=== PATIENT | male | born 2000 | race Hispanic/Latino ===

== ENCOUNTER → 2021-03-20 12:05 | Outpatient (CLI) | payer OTHER, SELFPAY ==
[2021-03-20 14:05] LABS: COVID19 -Nasal RAPID Negative (Negative)
== END ==
PROVIDERS: Visit Provider Physician Assistant
DX: Z20.822 Contact with and (suspected) exposure to COVID-19 (principal)
CPT/HCPCS: 87635

== ENCOUNTER 2021-03-21 08:29 | Day surgery (SDC) | payer OTHER, SELFPAY ==
[2021-03-18 07:46] VITALS: BMI 30.6
[2021-03-21] VITALS (8 sets, daily range): BP systolic 91–137; BP diastolic 66–92; PULSE 57–66; RESP 10–18; TEMP 36.2–36.5; O2SAT 88–100; BMI 29.4
--- NOTE | 2021-03-21 10:10 | PM.PREOP ---
Pre-operative Note Interval Note History & Physical reviewed/Exam performed by Physician: Yes Changes to H&P: No
--- NOTE | 2021-03-21 10:10 | PM.OP.1 ---
Operative Date/Time/Diagnoses Date of procedure: 03/21/21 Time of procedure: 10:59 Pre-op diagnosis: Chronic tonsillitis, tonsil stones, upper airway obstruction secondary to tonsillar hypertrophy Post-op diagnosis: same (with mild adenoid hypertrophy) Procedure & Clinicians Procedure: Tonsillectomy and adenoidectomy Same procedure as scheduled: Yes Indications: 20-year-old male with the above diagnoses incompletely managed with medical therapy presents for the above procedure. Following discussion of the material risks benefits complications and alternatives, he elected to proceed. Surgeon: Jaspreet Nash Click Yes if Unassisted: Yes Anesthesia Type: General and Local Operative Notes Findings: Intact palate, single uvula, 2 to 3+ tonsils cryptic with stone, inflamed, 1-2+ adenoids Estimated Blood Loss (mL): 20 Procedure in detail: Following identification and confirmation of consent the patient was brought to the operating room suite and placed in the supine position. General endotracheal anesthesia was administered. A head wrap, shoulder roll, and mouth gag were placed and a red rubber catheter was inserted through the nostril and out the mouth to retract the soft palate. Partially obstructive adenoid tissue was ablated with suction electrocautery on a setting of 40, without injury to the eustachian tube orifices or choana. The left tonsil was retracted medially and suction electrocautery on a setting of 30 was used to dissect the tonsil in a subcapsular plane, followed by hemostasis with the same. This process was repeated on the right side with identical findings. The tonsillar fossae were superficially infiltrated bilaterally with a 1:1 mixture of 1% lidocaine 1 100,000 epinephrine and 0.25% Marcaine 1 to [id number] epinephrine. Mouth gag and rubber catheter were removed and the patient was extubated in the operating room and taken to the recovery room in stable condition without known complication. Complications: none Post-operative Condition: stable Disposition: same day surgery Plan for aftercare: Push fluids, alternate Tylenol and Advil every 3 hours for baseline pain control, oxycodone for breakthrough pain. Soft diet 2 full weeks, no heavy lifting or straining 2 weeks.
--- NOTE | 2021-03-21 10:26 | SUR.OPER ---
Supine on padded OR bed, head on pillow, arms padded and tucked at sides, legs uncrossed, safety belt at thigh, tape over blanket over lower legs .
[2021-03-21] MEDS: BUPIVACAINE 0.25% (PF) VIAL 30 ML INJ (10:32)
[2021-03-21] MEDS: LIDOCAINE 1% W/EPI 20 ML INJ (10:33)
[2021-03-21] MEDS: OXYCODONE/ACETAMINOPHEN 5/325 TABLET 1 TAB PO ×2 (11:32→11:42)
== END 2021-03-21 12:25 | disposition home or self-care (01) ==
PROVIDERS: PCP Otolaryngology; Referring Provider Otolaryngology; Visit Provider Otolaryngology
PROC: (CPT 42821; principal; 2021-03-21 10:00)
DX: J35.01 Chronic tonsillitis (principal)
CPT/HCPCS: 42821; J0330; J1100; J2405; J2704; J3010